=== PATIENT | male | born 1995 | race Caucasian/White ===

== ENCOUNTER → 2019-12-09 16:29 | Outpatient (CLI) | payer OTHER, SELFPAY ==
[2019-12-11 13:04] LABS: Covid-19 Nasal PCR Sendout Lex Not Detected
== END ==
PROVIDERS: Visit Provider Physician Assistant
DX: Z20.828 Contact with and (suspected) exposure to other viral communicable diseases (principal)
CPT/HCPCS: U0004

== ENCOUNTER → 2020-03-31 10:22 | Outpatient (CLI) | payer OTHER, SELFPAY ==
[2020-04-01 15:48] LABS: Covid-19 Nasal PCR Sendout Lex Not Detected
== END ==
PROVIDERS: PCP Physician Assistant; Visit Provider Physician Assistant
DX: Z03.818 Encounter for observation for suspected exposure to other biological agents ruled out (principal)
CPT/HCPCS: U0004

== ENCOUNTER → 2020-05-26 14:01 | Outpatient (CLI) | payer OTHER, SELFPAY ==
[2020-05-28 10:13] LABS: Covid-19 Nasal PCR Sendout P&C Negative
== END ==
PROVIDERS: PCP Physician Assistant; Visit Provider Physician Assistant
DX: Z20.822 Contact with and (suspected) exposure to COVID-19 (principal)
CPT/HCPCS: U0004

== ENCOUNTER 2021-01-11 20:51 | Emergency (ER) | payer OTHER, SELFPAY ==
[2021-01-11 21:05] VITALS: BP 143/94; PULSE 114; RESP 18; TEMP 37.9; O2SAT 99; BMI 24.3
[2021-01-11 21:28] LABS: UTC Strep Screen (Rapid) Positive (Negative)
--- NOTE | 2021-01-11 21:30 | HMH.EDUTC ---
[facility] [place] Disposition Clinical Impression: Strep throat Disposition: Home, Self-Care Condition on Discharge: Good Instructions: DI for COVID-19 (Suspected or Confirmed ), Preventing the Spread of Coronavirus Discharge Instructions Additional Instructions: *Monitor Temp, Over the counter Motrin or Tylenol as directed/as needed Tylenol every 4 hours and Motrin every 6 hours (as long as your family doctor has told you that you can take it) for fever or pain. and straight to ER if unable to lower temp less than 101.0 after medication given *Warm salt water gargles may help to soothe the throat *Throat Lozenges *Warm fluids like tea with honey may help to soothe the throat *Sleep elevated *Humidifier/Vaporizer Follow up IMMEDIATELY for new or worsening symptoms or no Noticeable improvement over the next 48-72 hours. 911 for difficulty breathing or swallowing You were tested for today for COVID19 your test result should be back in the next 24-48 hours, You was given instructions to [facility] for your results if you do not have internet access you may call the [facility] You was given a handout with instructions for Self Quarantine and Self isolation for while you wait on test results and what to do if they are positive If you are positive the Health Dept will be contacting you also Make sure to take your Vitamins Vit. C Vit D and Zinc if you can take them Prescriptions: Cefdinir [Omnicef 300mg Capsule] 300 mg PO BID #20 cap Transmission Status: [facility] to [facility] Referrals: Eulalio Coleman [Primary Care Provider] - As needed Forms: Work/School Release Time of Disposition: 21:55 Medical Decision Making - Francois Inquiry Pt receiving controlled substance: No Francois was queried for this patient: No Vital Signs: 01/11/21 21:05 01/11/21 22:03 Temperature 100.2 F H 100.2 F H Temperature Source Oral Pulse Rate 114 H Pulse Rate [Right Brachial] 114 H Respiratory Rate 18 18 Blood Pressure 143/94 H Blood Pressure [Right Arm] 143/94 H Blood Pressure Mean [Right Arm] 110 Blood Pressure Source [Right Arm] Automatic Cuff Blood Pressure Position [Right Arm] Sitting 02 Sat by Pulse Oximetry 99 Oxygen Delivery Method Room Air - Lab Data Lab Results 01/11/21 21:27: Strep Scn Rapid Clinic Positive A Orders (Tests/Meds): ED MEDICATIONS Discontinued Medications Generic Name Dose Route Start Last Admin Trade Name Michael PRN Reason Stop Dose Admin Ceftriaxone Sodium 1 gm 01/11/21 21:42 01/11/21 21:55 Ceftriaxone 1gm Vial IM 01/11/21 21:43 1 gm ONCE ONE Administration Lidocaine HCl 0 ml 01/11/21 21:42 01/11/21 21:55 Lidocaine 1% 5ml Pf Vial IM 01/11/21 21:43 2.1 ml ONCE ONE Administration Methylprednisolone Sodium Succinate 125 mg 01/11/21 21:42 01/11/21 21:55 Methylprednisolone Sod Succ 125mg Vial IM 01/11/21 21:43 125 mg ONCE ONE Administration ORDERS Category Date Time Status Covid-19 Nasal PCR ([facility]) Routine Lab 01/11/21 21:[address] [facility] [place] HPI - General Stated complaint: Covid, HOOKER&Body Aches Time Seen by Provider: 01/11/21 21:42 Mode of Arrival: Ambulatory Source of Information: Patient Limitations: No Limitations Description of Symptoms (Recalled from Triage Doc. by RN): PATIENT C/O CONGESTION, BODY ACHES AND FEVER HEENT Symptoms (Recalled from RN notes): Yes Resp Symptoms (Recalled from RN notes): No Skin Symptoms (Recalled from RN notes): No MS Symptoms (Recalled from RN notes): No Functional Status (Recalled from RN notes): WNL - History of Present Illness Provider Complaint: Patient state that [place] and felt fine but after getting home today he started with body aches, fever, chills, headache and feeling tired and achy all over States that he was concerned he may have COVID so he came in to get tested - Related Data Home Medications Medication Instructions Recorded Confirmed cetirizine 1
[2021-01-11 22:03] VITALS: BP 143/94; PULSE 114; RESP 18; TEMP 37.9; O2SAT 99
== END 2021-01-11 22:06 | disposition home or self-care (01) ==
PROVIDERS: Emergency Provider Nurse Practitioner; PCP Internal Medicine
DX: J02.0 Streptococcal pharyngitis (principal)
CPT/HCPCS: 87880; 96372; 99202; G0463; U0003

== ENCOUNTER 2024-06-21 08:50 | Outpatient (CLI) | payer BC, SELFPAY ==
[2024-06-21 09:51] LABS: Basophils # 0.1 K/mm3 (0-0.2); Basophils % 0.8 % (0.1-2.0); Eosinophils # 0.1 K/mm3 (0.0-0.4); Eosinophils % 1.5 % (0.1-12.0); Hematocrit 47.6 % (42.0-52.0); Hemoglobin 16.5 g/dL (14.1-18.0); Lymphocytes # 1.8 K/mm3 (0.7-4.5); Mean Corpuscular HGB Conc 34.7 g/dL (31.8-35.4); Mean Corpuscular Hemoglobin 30.6 pg (27.0-31.2); Mean Corpuscular Volume 88.1 fl (80-94); Mean Platelet Volume 10.7 fl (7.4-10.4); Monocytes # 0.7 K/mm3 (0.1-1.0); Monocytes % 11.5 % (1.7-9.3); Neutrophils # 3.4 K/mm3 (1.8-7.8); Neutrophils % 55.9 % (37.0-80.0); Platelet Count 240 K/mm3 (142-424); Red Cell Distribution Width 11.8 % (11.5-17.5); White Blood Count 6.1 K/mm3 (4.8-10.8)
[2024-06-21 10:19] LABS: Chloride 103 mmol/L (98-107)
[2024-06-21 10:20] LABS: Albumin Level 5.1 g/dl (3.5-5.0); Sodium 141 mmol/L (136-145)
[2024-06-21 10:23] LABS: Alanine Aminotransferase 81 U/L (12-78); Alkaline Phosphatase 60 U/L (38-126); Aspartate Amino Transferase 70 U/L (17-59); Bilirubin,Total 0.9 mg/dl (0.2-1.3); Blood Urea Nitrogen 14 mg/dl (9-20); Calcium 10.1 mg/dl (8.4-10.2); Carbon Dioxide 31 mmol/L (22.0-30.0); Chol/HDL Ratio 6.3 (1-3.5); Cholesterol 208 mg/dl (140-200); Estimated Glomerular Filt Rate 73 ml/min (>60); GFR (African American) 89 ML/MIN (>60); Globulin 2.5 g/dL (1.3-3.2); Glucose 89 mg/dl (74-100); HDL Cholesterol 33 mg/dl (40-60); Total Protein,Serum 7.6 g/dl (6.3-8.2); Triglycerides 111 mg/dl (30-150); VLDL Cholesterol 22 mg/dL (0-40)
[2024-06-21 11:04] LABS: HIV Combo NEGATIVE (Negative)
[2024-06-21 11:12] LABS: Hepatitis C Ab Qual. W/ RFX NEGATIVE (Negative)
[2024-06-21 11:37] LABS: Hemoglobin A1C 5.1 % (4.0-6.0)
== END 2024-06-21 23:59 | disposition home or self-care (01) ==
LOC: LAB 08:51
PROVIDERS: PCP Internal Medicine; Visit Provider Internal Medicine
DX: I10 Essential (primary) hypertension (principal); Z13.220 Encounter for screening for lipoid disorders; Z13.1 Encounter for screening for diabetes mellitus; Z11.4 Encounter for screening for human immunodeficiency virus [HIV]; Z11.59 Encounter for screening for other viral diseases
CPT/HCPCS: 36415; 80053; 80061; 83036; 85025; 86803; 87389